=== PATIENT | female | born 1950 | race Caucasian/White ===

== ENCOUNTER 2025-02-03 10:09 | Outpatient (REF) | payer BC, SELFPAY ==
[2025-02-03 14:44] LABS: Hematocrit 43.3 % (37.0-47.0); Hemoglobin 14.4 g/dl (12.0-16.0); Mean Corpuscular HGB Conc 33.3 g/dl (31.0-35.0); Mean Corpuscular Hemoglobin 29.8 pg (27.0-33.0); Mean Corpuscular Volume 89.5 fL (80.0-98.0); NRBC Abs Auto 0.000 X10*3/uL (0.0-0.012); NRBC Pct Auto 0.0 /100WBC (0.0-0.2); Platelet Count 163 X10*3/uL (160-400); Red Blood Count 4.84 X10*6/uL (4.20-5.50); White Blood Count 4.9 X10*3/uL (4.8-10.8)
[2025-02-03 15:29] LABS: Alanine Aminotransferase 20 U/L (0-31); Albumin Level 4.9 g/dL (3.5-5.0); Alkaline Phosphatase 55 U/L (39-117); Anion Gap 12 (12-20); Aspartate Amino Transferase 31 U/L (5-31); Blood Urea Nitrogen 14 mg/dL (9-16); Calcium 9.5 mg/dL (8.4-10.2); Carbon Dioxide 28 mmol/L (22-29); Chloride 108 mmol/L (96-108); Cholesterol 171 mg/dL (<200); Estimated Glomerular Filt Rate > 60; HDL Cholesterol 63 mg/dL (>40); Potassium 3.8 mmol/L (3.3-5.1); Sodium 144 mmol/L (135-145); Total Protein 7.6 g/dL (6.5-8.0); Triglycerides 67 mg/dL (<150)
[2025-02-03 15:36] LABS: Folate 10.7 ng/mL (> or = 4.0); Vitamin B12 413 pg/mL (200-900)
[2025-02-03 19:54] LABS: Free T4 (Free Thyroxine) 0.81 ng/dL (0.71-1.85)
== END 2025-02-03 10:10 | disposition home or self-care (01) ==
LOC: HO.WFDLDS 10:09
PROVIDERS: PCP Nurse Practitioner Family; Visit Provider Nurse Practitioner Family
DX: I10 Essential (primary) hypertension (principal); M81.0 Age-related osteoporosis without current pathological fracture; E78.5 Hyperlipidemia, unspecified; E03.8 Other specified hypothyroidism; K59.09 Other constipation; K64.9 Unspecified hemorrhoids; R32 Unspecified urinary incontinence; Z23 Encounter for immunization; Z76.89 Persons encountering health services in other specified circumstances; Z92.89 Personal history of other medical treatment; Z13.1 Encounter for screening for diabetes mellitus
CPT/HCPCS: 36415; 80053; 80061; 82043; 82306; 82570; 82607; 82746; 83036; 84439; 84443; 85027; 90471; 90472; 90656; 90715; 96127

== ENCOUNTER 2025-02-03 10:09 | Outpatient (AMB) | payer BC, SELFPAY ==
--- NOTE | 2025-02-03 10:11 | MHC.PC.OV ---
Vital Signs 02/03/25 10:18 02/03/25 10:35 Height 5 ft 3 in Weight 124 lb 6 oz BMI 22.0 BP 152/82 H 124/66 Blood Pressure Location Rt brachial Rt brachial Position Sitting Sitting Respiration 14 Pulse 93 Pulse Source Pulse Oximeter Temp 97.3 F Temp Source Oral Pulse Oximetry (%) 98 Oxygen Delivery Method Room Air Intake Visit Reasons: DIRECTOR OF CONSULTING SERVICES regular appointment Intake Note: New patient to establish care Barker Operator Required: No Allergies ibuprofen (From [facility]) Adverse Reaction (Severe, Verified 02/03/25 10:27) Unknown Medication List - Last Reviewed 02/03/25 by Jose Bernardo MA alendronate mg PO amlodipine 2.5 mg PO DAILY atorvastatin 20 mg PO QPM clotrimazole-betamethasone 1-0.05 % appl topical DAILY hydrocortisone 2.5% 1 appl topical BID lisinopril 40 mg PO DAILY Tobacco use date assessed: 02/03/25 Fall risk assessment: 2 + Falls in past year (outside in winter, and slip on the bathroom) Last assessed Fall Risk: 02/03/25 Dental Screening Dental Screen Date: 02/03/25 Did you have a dental visit in the last 12 months?: Yes Did you have a dental problem in the last 6 months where you did not have access to dental care?: No Was dental information given to patient?: Patient has dentist HPI HPI Comments History of Present Illness Details 74-year-old female with osteoporosis, hyperlipidemia, hypertension, chronic constipation and hemorrhoids, subclinical hypothyroidism, incontinence SurgHx: Left knee arthroscopy FHx mother with stroke; father with a heart attack; brother with heart diseases. ; maternal grandmother stroke SocHx: Retired, , Retired from [employer] Health Maintenance: See scanned preventative medicine assessment with personalized health plan and screening schedule. Colon: 2018 Mammo 12/10/24 DEXA 04/2023 PAP Vaccines: Flu 02/03/25 Tdap 02/03/25 otherwise up-to-date AAA screen EKG: Specialists: DYE JIG OPERATOR Dr Quigley Podiatry Dr Gates History of Present Illness The patient is a 74-year-old female presenting to establish care and for medication refills. - Previous PCP [facility] records rec'd and reviewed. Establish Care and Health Maintenance: - The patient is establishing care. - She has not had blood work performed in over a year. - The patient currently sees a slasher tender helper and an CATECHIST. - Her immunization history includes two doses of the shingles vaccine. - She takes Vitamin D supplements. Hypertension: - The patient takes amlodipine 2.5 mg and lisinopril 40 mg for hypertension. - She reports that she recently changed her medication timing from the morning to the afternoon due to experiencing dizziness. - The patient reports feeling nervous upon arrival, which she believes contributed to an initially high blood pressure reading. Hyperlipidemia: - The patient takes atorvastatin 20 mg for hyperlipidemia. Osteoporosis: - The patient has a history of osteoporosis and takes Fosamax 70 mg. - This medication is prescribed by her director transition. Past Medical History - Osteoporosis, managed with Fosamax - Hypertension, managed with amlodipine and lisinopril - Hyperlipidemia, managed with atorvastatin - Chronic constipation - Hemorrhoids - Subclinical hypothyroidism - Urinary incontinence - Past shingles infection Review of Systems - Neurological: Reports a history of dizziness when taking blood pressure medication in the morning. - Musculoskeletal: Denies ankle swelling. - Psychiatric: Reports feeling nervous during check-in. Physical Exam General: Well developed, well nourished, in no acute distress. Appears stated age. Head: Normocephalic, atraumatic. Eyes: Pupils are equal, round and reactive to light and accommodation. Conjunctivae are clear. Vision grossly normal. Lungs: Clear to auscultation bilaterally. No rales, rhonchi or wheeze noted. Good air flow in all doll. Heart: Regular rate and rhythm. No murmurs, click, rubs or gallops are noted. Musculoskeletal: Joints are nontender, without swelling, redness, or effusions. Pulses: Peripheral pulses are equal and palpable bilaterally. Extremities: No clubbing, cyanosis nor edema is noted. No swelling in ankles. Psych: Mood and affect appropriate. Results Pending Medical Decision Making The patient is a 74-year-old female here to establish care. Her initial blood pressure was elevated, which she attributed to nervousness from the check-in process. A repeat blood pressure was 124/66 mmHg, which is well-controlled on her current regimen of amlodipine and lisinopril, which she takes in the afternoon to avoid dizziness. I reviewed her chronic conditions and have sent refills for her medications to her preferred pharmacies. Given that it has been over a year since her last labs, I ordered a baseline blood work panel. Her immunization status was reviewed, and she is up to date on her shingles vaccination. She has agreed to receive the seasonal influenza and Tdap vaccines today. A brief physical exam revealed clear lungs and no lower extremity edema. A follow-up appointment is scheduled in four weeks to review lab results and for her 's physical. Plan 1. Establish Care And Health Maintenance - Ordered baseline lab work, to be drawn today. - Administered seasonal influenza vaccine and Tdap vaccine in office. - Refilled prescriptions for amlodipine, lisinopril, and atorvastatin via [facility]. - Patient to follow up in approximately four weeks to review lab results. - Will contact the patient sooner if any critical lab values are identified. 2. Hypertension - Continue amlodipine 2.5 mg and lisinopril 40 mg. - The patient will continue to take her medications in the afternoon to mitigate dizziness. - Blood pressure was well-controlled at 124/66 mmHg in the office. 3. Hyperlipidemia - Continue atorvastatin 20 mg daily. 4. Osteoporosis - Continue Fosamax as prescribed by her CATECHIST. - Continue Vitamin D supplementation. Patient Instructions - You will receive a flu shot and a tetanus (Tdap) shot today before you leave. - After your shots, please go to the front office manager to schedule your next appointment for about four weeks from now. - At the front office manager, let them know you need to have your blood drawn. They will direct you to the lab. - We have sent refills for your blood pressure and cholesterol medicines to your [facility] mail-order pharmacy. - Continue taking your Fosamax for osteoporosis as directed by your director transition. - We will go over your lab results at your next visit, but I will call you right away if anything is abnormal. - RTO 4 weeks for SAWV sooner PRN Consent The patient was informed of the recommendation to receive the seasonal influenza vaccine and a Tdap vaccine. She was also advised that both vaccines can be safely administered at the same time. The patient provided verbal consent to receive both vaccinations during today's visit. The patient was also advised of the need for baseline lab work and provided verbal consent for the blood draw. Patient was informed and verbally consented to the use of an ambient scribe for clinic note documentation during this visit. Total time spent caring for the patient today was 45 minutes. This includes time spent before the visit reviewing the chart, time spent during the visit, and time spent after the visit on documentation, reviewing laboratory results, diagnostic imaging, medications, performing a medically necessary evaluation, counseling on diagnoses, care coordination, ordering appropriate tests, ordering appropriate medications, review of tests performed by other providers, reporting test results with the patient, communication with other healthcare providers. [facility] Social History (Updated 02/03/25 @ 10:12 by Jose Bernardo MA) Household Members: Spouse Both parents involved: No Caregiver staying overnight: No Housing: House Are you a primary healthcare specialist to a significant other at home: No Do you presently have visiting nurse or other home services: No 75 years or older and lives alone: No Alcohol intake: never Patient Tobacco Use Status: Never used Tobacco e-Cigarette/Vaping Use: Never Used Second Hand Smoke Exposure: No service: No Current occupational status: retired Current occupational exposures/hazards: No Cognitive needs: No Hearing needs: No Vision needs: Yes (wear glasses) Questionnaire PHQ-9 Over the last 2 weeks, how often have you been bothered by any of the following problems? 1. Little interest or pleasure in doing things: not at all 2. Feeling down, depressed, or hopeless: not at all 3. Trouble falling or staying asleep, or sleeping too much: not at all 4. Feeling tired or having little energy: several days 5. Poor appetite or overeating: not at all 6. Feeling bad about yourself - or that you are a failure or have let yourself or your family down: not at all 7. Trouble concentrating on things, such as reading the newspaper or watching television: not at all 8. Moving or speaking so slowly that other people could have noticed. Or the opposite - being so fidgety or restless that you have been moving around a lot more than usual: not at all 9. Thoughts that you would be better off or of hurting yourself in some way: not at all Total score: 1 Depression Screening Interpretation: Negative Depression Screening Done: Yes 01096 - PHQ-9 Billing: Yes Source: Developed by Drs. Krzysztof Lewis, Lilian Cash, Huang Pulido and colleagues, with an educational josh from [employer]. Thrive Questionnaire Date Thrive assessed: 02/03/25 I am a: Patient What is your living situation today?: I have a steady place to live Within the past 12 months, did the food you bought not last and you didn't have the money to get more?: Never true Within the past 12 months, did you worry whether your food would run out before you got money to buy more?: Never true Do you have trouble paying for medicines?: No Do you have trouble getting transportation to medical appointments?: No Do you have trouble paying your heating and electricity bill?: No Do you have trouble taking care of your child, family member or friend?: No Do you have trouble with day-to-day activities such as bathing, preparing meals, shopping, managing finances, etc.?: No Are you currently unemployed and looking for a job?: No Are you interested in more education?: No Please select the resources that you would like help with: None Currently or been in a relationship where the following occur: No concerns reported THRIVE Score: 0 AUDIT C Alcohol Use Questionnaire (AUDIT-C) 1. How often do you have a drink containing alcohol?: Never 3. How often do you have six or more drinks on one occasion?: Never Total Score: 0 Score Reviewed/Action Taken: Yes LISA-7 AMB Questionnaire LISA-7 Date LISA - 7 assessed: 02/03/25 Feeling nervous, anxious, or on edge: 1 = Several days Not being able to stop or control worryin = Not at all Worrying too much about different things: 0 = Not at all Trouble relaxin = Not at all Being so restless that it is hard to sit still: 0 = Not at all Becoming easily annoyed or irritable: 0 = Not at all Feeling afraid as if something awful might happen: 0 = Not at all Total LISA-7 score (0-4 normal; 5-9 mild; 10-14 moderate; 15-21 severe): 1 Source: Developed by Drs. Krzysztof Lewis, Lilian Cash, Huang Pulido and colleagues, with an educational josh from [employer] LISA-7 Assessment Billing LISA-7 Assessment Tool: LISA-7 Assessment 17783 Physical exam (Primary Care) Vital Signs: Last Vital Signs Temp 97.3 F 02/03/25 10:18 Pulse 93 02/03/25 10:18 Resp 14 02/03/25 10:18 BP 124/66 02/03/25 10:35 Pulse Ox 98 02/03/25 10:18 Oxygen Delivery Method Room Air 02/03/25 10:18 BMI result Body Mass Index 22.0 Tobacco/Smoking Status: Tobacco use Status Tobacco use date assessed 02/03/25 02/03/25 10:21 Patient Tobacco Use Status Never used Tobacco 02/03/25 10:21 e-Cigarette/Vaping Use Never Used 02/03/25 10:21 PHQ-9: PHQ-9 Score PHQ-9: Total score 1 02/03/25 10:27 Depression Screening Interpretation: Negative Thrive Assessment: Date of Thrive Assessment Date Thrive assessed 02/03/25 02/03/25 10:21 Currently or been in a relationship where the following occur: No concerns reported Office Procedures Flu Questionnaire Does the patient have a severe egg allergy?: No Does the patient have severe life threatening allergies?: No Does the patient have a fever or illness today?: No Has the patient ever had Guillain-Busby Syndrome?: No Has the patient ever had any past reaction to a flu shot?: No Immunizations Fluarix [id number] (PF) 45 mcg (15 mcg x 3)/0.5 mL IM syringe Performing Provider: SONJA Sandoval Performing Location: [facility] Administered by: Jose Bernardo MA on 02/03/25 10:48 Dose Route Admin Location Dispensed Lot Number Expiration Date [facility] Diagnostic Imaging Manager 0.5 mL IM Right Deltoid 0.5 mL [id number] 10/06/25 [id number] [facility] V[facility] Given Date VIS Provided VIS Publication Date 02/03/25 Single Vaccine 24 Eligibility Eligibility Date Funding Source Not VFC Eligible 02/03/25 Private Boostrix Tdap 2.5 Lf unit-8 mcg-5 Lf/0.5 mL intramuscular syringe Performing Provider: SONJA Sandoval Performing Location: [facility] Administered by: Jose Bernardo MA on 02/03/25 10:47 Dose Route Admin Location Dispensed Lot Number Expiration Date [facility] Diagnostic Imaging Manager 0.5 mL IM Left Deltoid 0.5 mL [id number] 03/06/27 03298-066-86 [employer] Total Dispensed Waste 0.5 mL 0 % VIS Given Date VIS Provided VIS Publication Date 02/03/25 Single Vaccine 20 Eligibility Eligibility Date Funding Source Not [facility] Eligible 02/03/25 Private Coding Level of Care Code New Pt Level 4 (40048) Complex EM visit Add On G2211 Diagnoses Encounter to establish care Z76.89 Osteoporosis M81.0 HLD (hyperlipidemia) E78.5 HTN (hypertension) I10 Chronic constipation K59.09 Subclinical hypothyroidism E03.8 Urinary incontinence R32 History of mammogram Z92.89 Influenza vaccination administered at current visit Z23 Need for Tdap vaccination Z23 Additional Codes LISA-7 Assessment Billing - LISA-7 Assessment Tool: LISA-7 Assessment 04477 ([id number]) PHQ-9 - 52627 - PHQ-9 Billing: Yes ([id number]) Assessment & Plan Assessment & Plan (1) Encounter to establish care: Code(s): Z76.89 - Persons encountering health services in other specified circumstances (2) Osteoporosis: Code(s): M81.0 - Age-related osteoporosis without current pathological fracture Category: Medical (3) HLD (hyperlipidemia): Code(s): E78.5 - Hyperlipidemia, unspecified Category: Medical (4) HTN (hypertension): Code(s): I10 - Essential (primary) hypertension Category: Medical (5) Chronic constipation: Code(s): K59.09 - Other constipation Category: Medical (6) Subclinical hypothyroidism: Code(s): E03.8 - Other specified hypothyroidism Category: Medical (7) Urinary incontinence: Code(s): R32 - Unspecified urinary incontinence Category: Medical (8) History of mammogram: Onset Date: ~12/10/24 Code(s): Z92.89 - Personal history of other medical treatment Category: Medical (9) Influenza vaccination administered at current visit: Onset Date: ~02/03/25 Code(s): Z23 - Encounter for immunization Category: Medical (10) Need for Tdap vaccination: Onset Date: ~02/03/25 Code(s): Z23 - Encounter for immunization Category: Medical Plan . Orders: Orders Complete Blood Count no Diff Today E03.8 - Other specified hypothyroidism, E78.5 - Hyperlipidemia, unspecified, I10 - Essential (primary) hypertension, M81.0 - Age-related osteoporosis without current pathological fracture Lipid Panel Today E03.8 - Other specified hypothyroidism, E78.5 - Hyperlipidemia, unspecified, I10 - Essential (primary) hypertension, M81.0 - Age-related osteoporosis without current pathological fracture Microalbumin, Random (w Creat) Today E03.8 - Other specified hypothyroidism, E78.5 - Hyperlipidemia, unspecified, I10 - Essential (primary) hypertension, M81.0 - Age-related osteoporosis without current pathological fracture Vitamin B12 and Folate Today E03.8 - Other specified hypothyroidism, E78.5 - Hyperlipidemia, unspecified, I10 - Essential (primary) hypertension, M81.0 - Age-related osteoporosis without current pathological fracture TDaP Immunization Today Z23 - Encounter for immunization Comprehensive Met. Panel Today E03.8 - Other specified hypothyroidism, E78.5 - Hyperlipidemia, unspecified, I10 - Essential (primary) hypertension, M81.0 - Age-related osteoporosis without current pathological fracture TSH reflex Free T4 Today E03.8 - Other specified hypothyroidism, E78.5 - Hyperlipidemia, unspecified, I10 - Essential (primary) hypertension, M81.0 - Age-related osteoporosis without current pathological fracture Vitamin D 25-OH Total Today E03.8 - Other specified hypothyroidism, E78.5 - Hyperlipidemia, unspecified, I10 - Essential (primary) hypertension, M81.0 - Age-related osteoporosis without current pathological fracture Hemoglobin A1c Today E03.8 - Other specified hypothyroidism, E78.5 - Hyperlipidemia, unspecified, I10 - Essential (primary) hypertension, M81.0 - Age-related osteoporosis without current pathological fracture Influenza [id number] Immunization Today Z23 - Encounter for immunization Medications: New atorvastatin 20 mg PO QPM 90 tabs 2RF alendronate 70 mg PO QWEEK 13 tabs 2RF 90 days amlodipine 2.5 mg PO DAILY 90 tabs 2RF lisinopril 40 mg PO DAILY 90 tabs 2RF Patient Instructions: Walk-In Care (Urgent Care): We Make it Easy Walk-in for urgent medical issues such as: ? Seasonal Allergies ? Insect Bites ? Cough ? Diarrhea ? Acute Asthma Attacks ? Back, Knee or Joint Pain ? Ear Infection ? Fever without a Rash ? Headaches ? Nausea ? [place], Rash or Skin Irritation ? Sore Throat ? Sports Physicals ? Vomiting Most insurances are accepted. Patients do not need to be part of the [facility] to seek care at the walk-in clinic. Locations [address], [place] Open Sunday through Sunday 8am-5pm *Hours may vary due to staffing availability. To confirm Walk-In Care hours please call. [address] [place] [address] ? [phone] [facility] Walk-In Care in [place] provides services to ages 18 and over. Open Sunday-Sunday: 7 a.m. to 5 p.m. and Sunday: 9 a.m. to 3 p.m.* *Hours may vary due to staffing availability. To confirm Walk-In Care hours in [place], please call [phone]. [address] [place] [address] ? [phone] [facility] Walk-In Care in [place] provides services to ages 12 and over. Open Sunday-Sunday: 8 a.m. to 5 p.m. Hours may vary due to staffing availability. To confirm Walk-In Care hours in [place], please call [phone]. LABORATORY SERVICES: [facility] ? Primary Location [address] [place] [address] Sunday through Sunday 6:00 AM ? 5:00 PM Sunday 7:00 AM ? 11:00 AM* [phone] The [facility] is centrally located near the front entrance of the [facility] for easy outpatient access. Convenient parking is provided for outpatients. *Hours may vary due to staffing availability. To confirm Laboratory hours for any location, please call [phone]. Offsite Location For your convenience, we offer offsite laboratory draw stations at the following locations: [address] [place] [address] ? [address], [address] Sunday through Sunday 7:30 AM ? 1:00 PM* [phone] *Hours may vary due to staffing availability. To confirm Laboratory hours for any location, please call [phone]. [place] ? [address] Sunday through Sunday 6:00 AM ? 3:30 PM* Sunday 6:30 AM ? 3 PM* [phone] *Hours may vary due to staffing availability. To confirm Laboratory hours for any location, please call [phone] [facility] Sunday through Sunday 7:30 AM ? 4:00 PM* [phone] *Hours may vary due to staffing availability. To confirm Laboratory hours for any location, please call [phone] [place] [address] Sunday through 9:00 AM ? 4:00 PM* *Hours may vary due to staffing availability. To confirm Laboratory hours for any location, please call [phone]. Appointments are not necessary. Walk-ins are welcome. Like all the departments throughout the [facility], our Lab undergoes frequent reviews to ensure the quality and accuracy of test results, and our staff takes special pride in its status as a nationally accredited facility. Patient Portal: [facility] ONE PATIENT. ONE RECORD. BETTER CARE. [facility] has a fully integrated, cutting-edge mobile electronic health information system that has revolutionized the way we care for our patients and manage our organization. This system improves communication and coordination enabling us to provide safe, higher-quality care, and an overall positive experience for staff and patients. Our first priority, as always, is to deliver the highest quality care possible. The system is running in the background supporting that priority. This portal is for all [facility] and [facility] services and practices. If you are experiencing any technical difficulties with enrolling or logging into the Patient Portal please complete the [facility] Patient Portal Technical Support Form. [facility] now offers a new secure on-line interactive tool for patients to review their health information ? ?Patient Portal. This interactive web portal will enable patients and their families to take an active role in their care by providing easy, secure access to their health information via the internet. The Patient Portal provides patients with instant access to their health information, including laboratory results, medications, allergies, demographic information, visit history, and more. In addition to managing their own care, parents and health care proxies with authorized consent will appreciate the ability to access the records of those individuals for whom they provide care. Please note: if you wish to gain access (Proxy) to another patient?s portal, you will be required to come to the Medical Records Department in person at [facility]. Both the patient giving proxy access and the proxy will need to provide photo identification and complete the appropriate authorization. The Patient Portal also allows track their appointments online. The [facility] Patient Portal also saves patients time by allowing them to submit updates to their demographic and contact information prior to their visits. Portal email notifications will also alert patients to any new activity on their portal, such as test results and new appointments. In order to initially enroll in the [facility] Patient Portal, you will need to enter some required information including the following: your [facility] Medical Record number your personal home email address name date of Please note: In order to enroll in the [facility] Patient Portal, we need to have your email address on file in your electronic medical record. ?The email address needs to be specific for one person (yourself) in order for your Portal enrollment to be successful. ?You can update your email address in person with our Registration staff when you are registering for a hospital visit. ?Otherwise, you will need to come to the Health Information Management (Medical Records) Department at [facility] [facility]. ?We are open from Sunday ? Sunday from 7:30 a.m. ? 4:30 p.m. ?You will be required to present a photo id. Once you have successfully enrolled in the Patient Portal, you will receive a one-time user id and password for the Portal, sent to your email address. ?This will allow you to log into the Patient Portal within 99 hrs and reset your own logon id and password, and define personal security questions. ?Once your permanent login and password have been set, you can log into the [facility] Patient Portal at any time via the blue button above or from the Portal Logon button on any page of the [facility] website. [facility] and [facility] encourage all of our patients to enroll in Patient Portal as it presents a valuable opportunity for patients and their families to actively participate in their care and stay healthy Welcome to [facility]. ?We look forward to working with you.
[2025-02-03 10:18] VITALS: BP 152/82; PULSE 93; RESP 14; TEMP 36.3; O2SAT 98; BMI 22.0
[2025-02-03 10:35] VITALS: BP 124/66
--- OUTSIDE RECORDS SUMMARY | 2025-02-03 12:18 | XMS_ITS | Encounter Summary ---
Author Organization [facility] Address [address] [facility] [address] [place] [id number] Phone Care Team Providers Care Double Cut Off Saw Operator Name Role Phone Darleen Garcia MD Primary Care Provider Unavailable Reason for Referral * Physical Therapy (Routine) - Closed Specialty Diagnoses / Procedures Referred By Contac t Referred To Contact Physical Therapy Diagnoses Constipation, unspecified constipation type constipation, has trouble pushing feces out, biofeedback System, Provider Not In, PhD [id number] [place] [id number] Phone: tel: Referral ID Status Reason Start Date Expiration Date Visits Re quested Visits Authorized [id number] Closed 09/25/2018 09/26/2019 1 1 Encounter Details Date Type Department Care Team (Latest Contact Info) Description 09/25/2018 Transcribe Orders [facility] [address] [place] [address] Lit Alexander MD [address] [place] [address]_[place] [address] Constipation, unspecified constipation type (Primary Dx) Social History Tobacco Use Types Packs/Day Years Used Date Smoking Tobacco: Never Assessed Comments Unknown Sex and Gender Information Value Date Recorded Sex Assigned at Not on file Legal Sex Female 3:25 PM EDT Gender Identity Not on file Sexual Orientation Not on file documented as of this encounter Plan of Treatment Scheduled Referrals Name Type Priority Associated Diagnoses Orde r Schedule Ambulatory referral to [facility] Physical Therapy Outpatient Referral Routine Constipation, unspecified constipation type Ordered: 09/25/2018 documented as of this encounter Visit Diagnoses Diagnosis Constipation, unspecified constipation type- Primary documented in this encounter Care Teams Double Cut Off Saw Operator Relationship Specialty Start Date End Date Darleen Garcia MD PCP - General 09/11/18 documented as of this encounter Additional Source Comments The information contained in this document represents components of the legal health record. It is not the complete legal health record.[facility]
--- OUTSIDE RECORDS SUMMARY | 2025-02-03 12:18 | XMS_ITS | Clinical Summary ---
Author Organization [facility] Address [address] [place] [phone] Phone Care Team Providers Care Alternative Energy Engineer Name Role Phone Darleen Garcia MD Primary Care Provider Unavailable Social History Tobacco Use Types Packs/Day Years Used Date Smoking Tobacco: Never Assessed Comments Unknown Sex and Gender Information Value Date Recorded Sex Assigned at Not on file Legal Sex Female 3:25 PM EDT Gender Identity Not on file Sexual Orientation Not on file Plan of Treatment Not on file Medical Devices Not on file Insurance [place] [place] BL[place]UE [place] [address] [address] [place] [address] MEDICARE PPO BLUE [place] [address] [place] [address] MEDICARE PPO BLUE [place] [address] [place] [address] MED[address]PO [address] [place] [place] [address] MEDICARE PPO BLUE RE[place]ACEMENT [employer] [place] [place] BLUE RE[employer]ACEMENT Care Teams Alternative Energy Engineer Relationship Specialty Start Date End Date Darleen Garcia MD PCP - General 09/11/18 Additional Source Comments The information contained in this document represents components of the legal health record. It is not the complete legal health record.[facility]
== END 2025-02-03 10:50 | disposition home or self-care (01) ==
LOC: HO.HMCFM 10:11
PROVIDERS: PCP Nurse Practitioner Family; Visit Provider Nurse Practitioner Family
DX: Z76.89 Persons encountering health services in other specified circumstances (principal); M81.0 Age-related osteoporosis without current pathological fracture; E78.5 Hyperlipidemia, unspecified; I10 Essential (primary) hypertension; K59.09 Other constipation; E03.8 Other specified hypothyroidism; R32 Unspecified urinary incontinence; Z92.89 Personal history of other medical treatment; Z23 Encounter for immunization

== ENCOUNTER 2025-03-13 10:24 | Outpatient (AMB) | payer BC, SELFPAY ==
--- NOTE | 2025-03-13 10:26 | A.OFFVIS_ITS ---
Intake Vital Signs 03/13/25 10:31 Height 5 ft 3 in Weight 125 lb 8 oz BMI 22.2 BP 128/74 Blood Pressure Location Lt brachial Position Sitting Respiration 13 Pulse 81 Pulse Source Pulse Oximeter Temp 97.7 F Temp Source Oral Pulse Oximetry (%) 98 Oxygen Delivery Method Room Air Intake Visit Reasons: 4 weeks sAWV Intake Note: AWV. Color Expert Required: No Allergies ibuprofen (From Motrin) Adverse Reaction (Severe, Verified 03/13/25 10:54) Unknown Medication List - Last Reconciled 03/13/25 by Meaghan Banks, [facility]- alendronate 70 mg PO QWEEK 90 days amlodipine 2.5 mg PO DAILY atorvastatin 20 mg PO QPM clotrimazole-betamethasone 1-0.05 % appl topical DAILY hydrocortisone 2.5% 1 appl topical BID lisinopril 40 mg PO DAILY Do you need a note to return to daycare/school/sports/work: No HPI HPI Comments History of Present Illness Details Here today for AWV. The Medicare Annual Wellness Visit (AWV) is a yearly appointment with a health professional to identify health risks and help reduce them and to create or update a personalized prevention plan. During a Medicare AWV, health professionals should also review any current opioid prescriptions, detect any cognitive impairment, and establish or update medical and family history. 74-year-old female with osteoporosis, hy perlipidemia, hypertension, chronic constipation and hemorrhoids, subclinical hypothyroidism, incontinence SurgHx: Left knee arthroscopy FHx mother with stroke; father with a heart attack; brother with heart diseases. ; maternal grandmother stroke SocHx: Retired, , Retired from [employer] Health Maintenance: See scanned preventative medicine assessment with personalized health plan and screening schedule. Colon: 2018 Mammo 12/10/24 DEXA 04/2023 PAP active w/ AGRICULTURAL RESEARCH DIRECTOR Vaccines: Flu 02/03/25 Tdap 02/03/25 otherwise up-to-date AAA screen: NA EKG: Done today and it shows borderline QTC, LVH otherwise within normal limits Labs 02/03/25 TSH 5.58, LDL 95, A1c 4.8% Specialists: AGRICULTURAL RESEARCH DIRECTOR Dr Quigley Podiat[facility] Dr Gates Optho annual exams Visual Acuity: next exam 03/27/25, annual exams, wears glasses Hearing Screening: No concerns ACP: thinks she has HCP and MOLST at home, will review. Blank forms given along w/ education. Dietary/Nutrition/Exercise Edu provided: Y During the course of the visit the patient was educated and counseled about appropriate screening and preventative services. Patient instructions were provided to the patient in written or electronic format. I have reviewed and verified the above information. History of Present Illness The patient is a 74 year old female presenting for an annual Medicare wellness visit. Chronic Condition Management: - The patient has a history of hyperlipi demia managed with atorvastatin, with a recent LDL of 95 on February 03. - She has hypertension treated with lucy nopril. - She has a history of subclinical hypot hyroidism with a TSH of 5.58. - She has osteoporosis and takes Fosamax . Arthritis: - The patient reports arthritis pain in her hands and feet, which she states wo rsens in the winter. - She has used Tylenol for Arthritis and Advil, which provided relief. 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 Gait Instability: - The patient reports feeling unsteady o n her feet at times. - She had one fall last year while shove ling and also slipped in the bathroom without injury. - She feels nervous and has difficulty g oing down stairs, particularly on a section with only one handrail, due in part to a lifelong fear of heights. - The patient declined a referral for ph ysical therapy, stating she did not think she needed it and also citing financial reasons. Constipation: - The patient reports having problems wi th bowel movements and has a history of irritable bowel syndrome. - She states that stool softeners do not work for her and only laxatives provide relief. - Prior recommendations from a specialis t felt overwhelming, and she takes one stool softener per day instead of the recommended two because she does not like taking many pills. - She has tried a fiber powder supplemen t (Benefiber), which helped a little. Past Medical History - Hyperlipidemia, treated with atorvasta tin. - Hypertension, treated with lisinopril. - Subclinical hypothyroidism. - Osteoporosis, treated with Fosamax. - Irritable bowel syndrome. - History of a fall one year ago. - Lifelong acrophobia (fear of heights). Past Surgical History - Knee surgery 20 years ago. Social History - Tobacco Use: The patient denies smokin g. - Alcohol Use: The patient reports drink ing wine seasonally at [employer] and [facility]. - Exercise: She previously had a gym mem bership but discontinued it due to financial reasons. - Functional Status: She engages in hous ework and outdoor raking for activity. - Living Situation: She lives with her h band. - Driving: She drives but not frequently or for long distances and avoids driving in snow. - Safety: She always wears a seatbelt wh en in a car. - She does not own a cell phone and reli es on a landline for calls. - Nutrition: She reports not being a big water drinker. Health Maintenance - This was an annual Medicare wellness v isit. - Eye Exam: She has an upcoming appointm ent on the of this year. - Advance Directives: The patient discus sed her healthcare proxy status, noting she previously completed one but is unsure of its location. - Screening Labs (02/03/25): LDL was 95 and A1c was 4.8. - EKG: An EKG performed during the visit - Fall Prevention: Discussed fall risk a nd the option of a lifeline device. Review of Systems - Constitutional: Denies recent falls. - Eyes: Reports wearing glasses for driv ing and reading. - Ears: Reports intermittent cerumen imp action causing muffled hearing, which her flushes out. - Gastrointestinal: Reports chronic cons tipation and abdominal cramping related to constipation. - Genitourinary: Reports mild urinary in continence, particularly with increased fluid intake. - Musculoskeletal: Reports arthritis sonia n and stiffness in her hands and feet, which worsens in the winter. - She also reports nocturnal leg cramps and chronic wintertime pain in her leg since a knee surgery 20 years ago. - Neurological: Reports occasional tingl ing in her hands and feet. - She reports gait unsteadiness, especia lly when going down stairs. - Skin: Reports having dry skin. - Psychiatric: Reports a lifelong fear o f heights. Physical Exam General: Well developed, well nourished, in no acute distress. Appears stated age. Head: Normocephalic, atraumatic. Eyes: Pupils are equal, round and reactive to light and accommodation. Conjunctivae are clear. Scleras nonicteric bilat. Vision grossly normal. Patient wears driving and reading glasses. Ears: Cerumen impaction bilat s/p lavage, TMs clear AU, EACS WNL. Nose: Patent, without discharge. Neck: No carotid bruit bilat. Supple, no adenopathy or thyromegaly. Breast: Edu on SBE Lungs: Clear to auscultation bilaterally. No rales, rhonchi or wheeze noted. Good air flow in all doll. Heart: Regular rate and rhythm. No murmurs, click, rubs or gallops are noted. Abdomen: Bowel sounds present in all quadrants. The abdomen is soft, nontender, with no masses or organomegaly noted. No hernias are noted. : Deferred. Reviewed recommendations for routine AGRICULTURAL RESEARCH DIRECTOR. Reports urinary incontinence. Pulses: Peripheral pulses are equal and palpable bilaterally. Extremities: No clubbing, cyanosis nor edema is noted. Reports tingling in feet and hands. Neurologic: Gait and station normal. Cranial Nerves 2-12 intact. Motor strength grossly symmetrical and intact. No sensory loss. Balance normal.Slow gaurded gait Skin: No rashes, ulcers, or lesions noted. Turgor is good. Skin color is good. Hair and nails are without abnormalities. Psych: Normal eye contact, affect and mood appropriate, and normal interactions. Patient is alert and appropriate to context. Results - Labs (02/03/25): LDL 95, A1c 4.8, TSH 5.58. - EKG (Today): Normal. Medical Decision Making The patient is a 74-year-old female who presented for her annual Medicare wellness visit. Her chronic conditions, including hyperlipidemia, hypertension, subclinical hypothyroidism, and osteoporosis, appear stable on her current medications, with recent labs and today's EKG being reassuring. Her primary complaints today were related to arthritis, constipation, and gait instability. For arthritis pain, Tylenol Arthritis and topical Voltaren gel are recommended to provide relief while minimizing systemic medication intake, which is a patient preference. Regarding her chronic constipation and history of IBS, she feels overwhelmed by complex regimens. Therefore, the plan was simplified to include a daily fiber supplement and a PRN laxative syrup to improve adherence and efficacy. Gait instability and fall risk were addressed. While physical therapy was declined, information on a fall alert system will be provided to enhance safety at home, given her lack of a cell phone and history of falls. On examination, bilateral cerumen impaction was an acute finding and will be managed with in- office lavage today. The patient will follow up in six months with repeat labs to monitor her chronic conditions. Plan 1. Annual Medicare Wellness Visit - Discussed advance directives and provi ded the patient with blank healthcare proxy forms for herself and her to complete. - Addressed fall risk and will arrange f or information on fall alert/lifeline systems to be mailed to the patient's home. 2. Arthritis - Recommended continued use of over-the- counter Tylenol Arthritis for pain. - Suggested trying topical Voltaren (dic lofenac) gel as an alternative to oral pills for pain management in hands, feet, and knees. 3. Constipation - Sent a prescription for a fiber supple ment tablet to be taken daily to promote bowel regularity. - Sent a prescription for a laxative syr up to be used as needed for episodes of constipation. 4. Bilateral Cerumen Impaction - Ordered bilateral ear lavage to be per formed in the office today to remove the impaction. 5. Follow-Up /Chronic Dz - Cont all meds. - The patient is to schedule a follow-up appointment in six months. - Repeat labs are to be drawn at this inic one week prior to her next appointment. Patient Instructions - For your arthritis pain, you can use T ylenol Arthritis or the Voltaren gel that you can rub on your hands, feet, and knees. - For constipation, I have sent in two n ew medications: a fiber tablet to take every day to help you stay regular, and a syrup to use only when you are constipated and need to have a bowel movement. - We are going to have someone come in a nd flush the wax out of your ears before you go home today. - Please look for your completed healthc are proxy form at home. If you cannot find it, please fill out the new blank forms I gave you for yourself and your . - We will mail you information about fal l alert systems to review with your . - Please stop at the front line supervisor to sched ule a follow-up appointment with me in six months. - You will need to get blood work done o ne week before your next appointment. Please come to this clinic's lab for that. - RTO 6 mo HTN, HLD, Arthritis, subclini sheree tsh Consent No consent was obtained as no procedures were performed. Patient was informed and verbally consented to the use of an ambient scribe for clinic note documentation during this visit. An additional 30 minutes was spent addressing the problem(s) noted at todays visit. This includes time spent before the visit reviewing the chart, time spent during the visit, and time spent after the visit on documentation reviewing laboratory results, diagnostic imaging, medications, performing a medically necessary evaluation, counseling on diagnoses, care coordination, ordering appropriate tests, ordering appropriate medications, review of tests performed by other providers, reporting test results with the patient, communication with other healthcare providers. [facility] Medical History (Updated 03/13/25 @ 11:[address] [facility]) Arthritis Eczema High cholesterol IBS (irritable bowel syndrome) No pertinent family history Shingles Surgical History (Updated 02/03/25 @ 11:18 by Jose Bernardo MA) H/O knee surgery Social History (Updated 02/03/25 @ 10:12 by Jose Bernardo MA) Household Members: Spouse Both parents involved: No Caregiver staying overnight: No Housing: House Are you a primary career development counselor to a significant other at home: No Do you presently have visiting nurse or other home services: No 75 years or older and lives alone: No Alcohol intake: never Patient Tobacco Use Status: Never used Tobacco e-Cigarette/Vaping Use: Never Used Second Hand Smoke Exposure: No service: No Current occupational status: retired Current occupational exposures/hazards: No Cognitive needs: No Hearing needs: No Vision needs: Yes (wear glasses) Questionnaire Medicare Wellness Checkup What [age] What gender do you identify with?: female During the past 4 weeks, how much have you been bothered by emotional problems such as feeling anxious, depressed, irritable, sad or downhearted, and blue?: not at all During the past 4 weeks, has your physical & emotional health limited your social activities with family, friends, neighbors, or groups?: not at all During the past 4 weeks, how much bodily pain have you generally had?: very mild pain During the past 4 weeks, was someone available to help you if you needed & wanted help?: yes, as much as I wanted During the past 4 weeks, what was the hardest physical activity you could do for at least 2 minutes?: moderate Can you get to places out of walking distance without help? (For eg., can you travel alone on buses, taxis or drive your car?): Yes Can you go shopping for groceries or clothes without someone's help?: Yes Can you prepare your own meals?: Yes Can you do your housework without help?: Yes Because of any health problems, do you need the help of another person with your personal care needs such as eating, bathing, dressing or getting around the house?: No Can you handle your own money without help?: Yes During the past 4 weeks, how would you rate your health in general?: very good During the past 4 weeks how have things been going for you?: pretty well Are you having difficulties driving your car?: no Do you always fasten your seat belt when you are in a car?: yes, usually During past 4 weeks, have you been bothered by the following: never: Falling or dizzy when standing up, Sexual problems?, Trouble eating well?, Teeth or denture problems?, Problems using the telephone? and Tiredness or fatigue? Have you fallen 2 or more times in the past year?: No Are you afraid of falling?: Yes Are you a smoker?: no During the past 4 weeks, how many drinks of wine, beer, or other alcoholic beverages did you have?: 1 drink or less per week Do you exercise for about 20 minutes 3 or more times a week?: yes, some of the time Have you been given information to help with the following?: no: Hazards in your house that might hurt you? and no: Keeping track of your medications? How often do you have trouble taking medicines the way you have been told to take them?: I always take medicine as prescribed How confident are you that you can control & manage most of your health problems?: very confident What is your race?: White Activity of Daily Living Bathing - sponge bath, tub bath or shower: receives no assistance (gets in/out by self, if usual bathing means Dressing - getting clothes from closets & drawers, including inner/outer garments & fasteners.: gets clothes & gets completely dressed without help Toileting - going to the 'toilet room' for urine/bowel elimination & cleaning self/arranging clothes: goes to toilet room, cleans self, arranges clothes without help Transfer: moves in & out of bed and chair without help (may use support object) Continence: controls urination/bowel movements completely by self Feeding: feeds self without help Total Score: 0 Information obtained from: patient Using telephone: independent Traveling: independent Shopping: independent Preparing meals: independent Housework: independent Taking medicine: independent Managing money: independent PHQ-9 Over the last 2 weeks, how often have you been bothered by any of the following problems? 1. Little interest or pleasure in doing things: not at all 2. Feeling down, depressed, or hopeless: not at all 3. Trouble falling or staying asleep, or sleeping too much: not at all 4. Feeling tired or having little energy: not at all 5. Poor appetite or overeating: not at all 6. Feeling bad about yourself - or that you are a failure or have let yourself or your family down: not at all 7. Trouble concentrating on things, such as reading the newspaper or watching television: not at all 8. Moving or speaking so slowly that other people could have noticed. Or the opposite - being so fidgety or restless that you have been moving around a lot more than usual: not at all 9. Thoughts that you would be better off or of hurting yourself in some way: not at all Total score: 0 Depression Screening Interpretation: Negative Depression Screening Done: Yes 12503 - PHQ-9 Billing: Yes Source: Developed by Drs. Krzysztof Lewis, Lilian Cash, Huang Pulido and colleagues, with an educational josh from [employer]. Physical Exam Vital Signs: Last Vital Signs Temp 97.7 F 03/13/25 10:31 Pulse 81 03/13/25 10:31 Resp 13 03/13/25 10:31 BP 128/74 03/13/25 10:31 Pulse Ox 98 03/13/25 10:31 Oxygen Delivery Method Room Air 03/13/25 10:31 BMI result Body Mass Index 22.2 Office Procedures Cerumen Removal From which ear canal was the cerumen removed: bilateral Removal: irrigation Notes: patient tolerated procedure well, no complications and ear canal clear [id number] Irrigation/Lavage EKG [id number], Complete Vision Screening Right Eye: 20/25 Left Eye: 20/25 Bilateral: 20/25 Color: Pass [id number] - Vision Screening Assessment & Plan Assessment & Plan (1) Encounter for annual wellness visit (AWV) in Medicare patient: Onset Date: ~03/13/25 Code(s): Z00.00 - Encounter for general adult medical examination without abnormal findings (2) Subclinical hypothyroidism: Code(s): E03.8 - Other specified hypothyroidism (3) Osteoarthritis: Code(s): M19.90 - Unspecified osteoarthritis, unspecified site Qualifiers: Osteoarthritis location: unspecified site (4) At risk for falls: Code(s): Z91.81 - History of falling (5) Chronic constipation: Code(s): K59.09 - Other constipation (6) Impacted cerumen, bilateral: Code(s): H61.23 - Impacted cerumen, bilateral (7) HLD (hyperlipidemia): Code(s): E78.5 - Hyperlipidemia, unspecified Qualifiers: Hyperlipidemia type: mixed hyperlipidemia Qualified Code(s): E78.2 - Mixed hyperlipidemia (8) HTN (hypertension): Code(s): I10 - Essential (primary) hypertension Qualifiers: Hypertension type: primary hypertension Qualified Code(s): I10 - Essential (primary) hypertension (9) History of colonoscopy: Onset Date: ~2017 Code(s): Z98.890 - Other specified postprocedural states (10) History of mammogram: Onset Date: ~12/10/24 Code(s): Z92.89 - Personal history of other medical treatment (11) Urinary incontinence: Code(s): R32 - Unspecified urinary incontinence Plan . Orders: Orders Lipid Panel 6 Months E03.8 - Other specified hypothyroidism, E78.5 - Hyperlipidemia, unspecified, I10 - Essential (primary) hypertension Comprehensive Met. Panel 6 Months E03.8 - Other specified hypothyroidism, E78.5 - Hyperlipidemia, unspecified, I10 - Essential (primary) hypertension TSH reflex Free T4 6 Months E03.8 - Other specified hypothyroidism, E78.5 - Hyperlipidemia, unspecified, I10 - Essential (primary) hypertension Referrals Nurse Navigator Referral Z91.81 - History of falling Medications: New lactulose 20 grams (30 mL) PO BID PRN 946 mL 2RF constipation 30 days calcium polycarbophil (Fiber-Tabs) 1,250 mg (2 x 625 mg) PO DAILY 180 tabs 2RF Patient Instructions: Patient Instructions - For your arthritis pain, you can use Tylenol Arthritis or the Voltaren gel that you can rub on your hands, feet, and knees. - For constipation, I have sent in two new medications: a fiber tablet to take every day to help you stay regular, and a syrup to use only when you are constipated and need to have a bowel movement. - We are going to have someone come in and flush the wax out of your ears before you go home today. - Please look for your completed healthcare proxy form at home. If you cannot find it, please fill out the new blank forms I gave you for yourself and your . - We will mail you information about fall alert systems to review with your . - Please stop at the front line supervisor to schedule a follow-up appointment with me in six months. - You will need to get blood work done one week before your next appointment. Please come to this clinic's lab for that. Health screenings for women You should visit your health care provider from time to time, even if you are healthy. The purpose of these visits is to: Screen for medical issues Assess your risk for future medical problems Encourage a healthy lifestyle Update vaccinations and other preventive care services Help you get to know your provider in case of an illness Information Even if you feel fine, you should still see your provider for regular checkups. These visits can help you avoid problems in the future. For example, the only way to find out if you have high blood pressure is to have it checked regularly. High blood sugar and high cholesterol levels also may not have any symptoms in the early stages. A simple blood test can check for these conditions. There are specific times when you should see your provider or receive specific health screenings. The [place] Preventive Services Task Force publishes a list of recommended screenings. Below are screening guidelines for women ages 18 to 39. BLOOD PRESSURE SCREENING Your blood pressure should be checked at least once every 3 to 5 years if: Your blood pressure is in the normal range (top number less than 120 mm Hg and bottom number less than 80 mm Hg) You don't have risk factors for high blood pressure Ask your provider if you need your blood pressure checked more often if: The top number is 120 to 129 mm Hg or the bottom number is 70 to 79 mm Hg You have diabetes, heart disease, kidney problems, are overweight, or have certain other health conditions You have a first-degree relative with high blood pressure You are Black You had high blood pressure during a If the top number is 130 mm Hg or greater or the bottom number is 80 mm Hg or greater, this is considered stage 1 hypertension. Schedule an appointment with your provider to learn how you can reduce your blood pressure. Watch for blood pressure screenings in your area. Ask your provider if you can stop in to have your blood pressure checked. BREAST CANCER SCREENING Experts do not agree about the benefits of breast self-exams in finding breast cancer or saving lives. Talk to your provider about what is best for you. A screening mammogram is not recommended for most women under age 40. Your provider may discuss and recommend mammograms, MRI scans, or ultrasounds if you have an increased risk for breast cancer, such as: A mother or sister who had breast cancer at a young age (most often starting screening earlier than the age the close relative was diagnosed) You carry a high-risk genetic marker CERVICAL CANCER SCREENING Cervical cancer screening should start at age 21 years unless your provider advises otherwise. After the first test: Women ages 21 through 29 should have a Pap test every 3 years. Exoprts do not agree on whether HPV testing is recommended for this age group. Women ages 30 through 65 should be screened with either a Pap test every 3 years or the HPV test every 5 years or both tests every 5 years (called cotesting ). Women who have been treated for precancer (cervical dysplasia) should continue to have Pap tests for 20 years after treatment or until age 65, whichever is longer. If you have had your uterus and cervix removed (total hysterectomy), and you have not been diagnosed with cervical cancer or precancer (high grade cervical neoplasia), you do not need cervical cancer screening. CHOLESTEROL SCREENING Cholesterol screening should begin at: Age 45 for women with no known risk factors for coronary heart disease Age 20 for women with known risk factors for coronary heart disease Repeat cholesterol screening should take place: Every 5 years for women with normal cholesterol levels More often if changes occur in lifestyle (including weight gain and diet) More often if you have diabetes, heart disease, kidney problems, or certain other conditions DIABETES SCREENING You should be screened for diabetes starting at age 35 and then repeated every 3 years if you have no risk factors for diabetes. Screening may need to start earlier and be repeated more often if you have other risk factors for diabetes, such as: You have a first degree relative with diabetes. You are overweight or have obesity. You have high blood pressure, prediabetes, or a history of heart disease. Screening for diabetes should be done if you are planning to become and you are overweight and have other risk factors such as high blood pressure. DENTAL EXAM Go to the dentist once or twice every year for an exam and cleaning. Your dentist will evaluate if you need more frequent visits. EYE EXAM Have an eye exam every 5 to 10 years before age 40. If you have vision problems, have an eye exam every 2 years or more often if recommended by your provider. You should have an eye exam that includes an examination of your retina (back of your eye) at least every year if you have diabetes. IMMUNIZATIONS Commonly needed vaccines include: Flu shot: get one every year. COVID-19 vaccine: ask your provider what is best for you. Tetanus-diphtheria and acellular pertussis (Tdap) vaccine: have one at or after age 19 as one of your tetanus-diphtheria vaccines if you did not receive it as an adolescent. Tetanus-diphtheria: have a booster (or Tdap) every 10 years. Varicella vaccine: receive 2 doses if you never had chickenpox or the varicella vaccine. Hepatitis B vaccine: receive 2, 3, or 4 doses, depending on your exact circumstances. Measles, mumps, and rubella (MMR) vaccine: receive 1 to 2 doses if you are not already immune to MMR. Your provider can tell you if you are immune. Ask your provider about the human papillomavirus (HPV) vaccine if: You have not received the HPV vaccine in the past You have not completed the full vaccine series (you should catch up on this shot) Ask your provider if you should receive other immunizations if you have certain health problems that increase your risk for some diseases such as pneumonia. INFECTIOUS DISEASE SCREENING Women who are sexually active should be screened for chlamydia and gonorrhea up until age 25. Women 25 years and older should be screened for chlamydia and gonorrhea if at high risk. Screening for hepatitis C: All adults ages 18 to 79 should get a one-time test for hepatitis C. people should be screened at every . Screening for human immunodeficiency virus (HIV): All people ages 15 to 65 should get a one-time test for HIV. Depending on your lifestyle and medical history, you may also need to be screened for infections such as syphilis and HIV, as well as other infections. PHYSICAL EXAM All adults should visit their provider from time to time, even if they are healthy. The purpose of these visits is to: Screen for disease Assess your risk of future medical problems Encourage a healthy lifestyle Update your vaccinations and other preventive care services Maintain a relationship with a provider in case of an illness Your height, weight, and BMI should be checked at every exam. During your exam, your provider may ask you about: Depression and anxiety Diet and exercise Alcohol and tobacco use Safety issues, such as using seat belts, smoke detectors, and intimate partner violence Your medicines and risk for interactions SKIN SELF-EXAM Your provider may check your skin for signs of skin cancer, especially if you're at high risk, such as if you: Have had skin cancer before Have close relatives with skin cancer Have a weakened immune system OTHER SCREENING Talk with your provider about colon cancer screening if you have a strong family history of colon cancer or polyps, or if you have had inflammatory bowel disease or polyps yourself. Routine bone density screening of women under 40 is not recommended. Quality Reporting (2020) Adult ([facility] 138//) Smoking risk assessment performed?: Yes Patient Tobacco Use Status: Never used Tobacco Depression screening performed: Yes Screen Results: Yes Negative screen Systolic BP not done?: No Diastolic BP not done?: No BMI screening not done: No Sexual Activity Screening ([facility] 153) Sexually active?: Yes Immunizations ([facility] 147, 117) Annual Influenza Vaccine: Yes Measles Antibody Test: No Mumps Antibody Test: No Rubella Antibody Test: No Varicella Antibody Test: No Anti Hepatitis A IgG Antigen test: No Anti Hepatitis B Virus Surface Ab test: No Fall Risk Screening ([facility] 139) Last assessed Fall Risk: 03/13/25 Fall risk assessment: No Falls in past year Dementia Assessment ([facility] 149) Cognitive assessment recorded: Yes Assessment of cognition with standardized tool: Yes Depression/Bipolar (159/160/161/177) PHQ-9: Total score: 0 Ophthalmol:Cataracts Visual Acuity (133) Visual acuity exam performed: Yes Coding Level of Care Code Medicare Subsequent (G0439) Est Pt Level 4 (34994) Diagnoses Encounter for annual wellness visit (AWV) in Medicare patient Z00.00 Subclinical hypothyroidism E03.8 Osteoarthritis M19.90 Osteoarthritis location: unspecified site At risk for falls Z91.81 Chronic constipation K59.09 Impacted cerumen, bilateral H61.23 Mixed hyperlipidemia E78.2 Hyperlipidemia type: mixed hyperlipidemia Primary hypertension I10 Hypertension type: primary hypertension History of colonoscopy Z98.890 History of mammogram Z92.89 Urinary incontinence R32 CPT Codes Advance Care Planning - Time spent: 16-45 minutes ([id number]) Office Procedure - CPT: 62144-Dyc Irrigation/Lavage ([id number]) EKG - CPT: 66523-Nsrrwycbqfslemsyh, Complete ([id number]) Vision Screening - Vision Screenin - Vision Screening ([id number]) Additional Codes PHQ-9 - 43574 - PHQ-9 Billing: Yes ([id number]) Advance Care Planning Advance Care Planning discussion: Exists, not on file Date of discussion: 03/13/25 Who was present: self Forms completed: Health Care Proxy, MOLST and Living will Time spent: 16-45 minutes Actual minutes spent: 16
[2025-03-13 10:31] VITALS: BP 128/74; PULSE 81; RESP 13; TEMP 36.5; O2SAT 98; BMI 22.2
--- OUTSIDE RECORDS SUMMARY | 2025-03-13 12:03 | XMS_ITS | Clinical Summary ---
Author Organization [facility] Address [address] [place] [phone] Phone Care Team Providers Care Head Start Teacher Name Role Phone Darleen Garcia MD Primary [...] [place] MEDICARE PPO BLUE [place]AC[place] [address] [place] [address] MEDICARE PPO [place] [address] [place] [address] MEDICARE PPO [place] [place] [address] MEDICARE PPO [place]UE [place] [address] [place] [address] MEDICARE PPO BLUE REPLACEMENT [place] MED[place] P[place] BLUE REPLACEMENT Care Teams Head Start Teacher Relationship Specialty Start Date End Date Darleen Garcia MD PCP - General 09/11/18 Additional Source Comments The information contained in this document represents components of the legal health record. It is not the complete legal health record.[facility]
--- OUTSIDE RECORDS SUMMARY | 2025-03-13 12:03 | XMS_ITS | Encounter Summary ---
Author Organization [facility] Address [address] [place] [phone] Phone Care Team Providers Care Jail Manager Name Role Phone Darleen Garcia MD Primary Care Provider Unavailable Reason for Referral * Physical Therapy (Routine) - Closed Specialty Diagnoses / Procedures Referred By Contac t Referred To Contact Physical Therapy Diagnoses Constipation, unspecified constipation type constipation, has trouble pushing feces out, biofeedback System, Provider Not In, PhD [id number] [place] [id number] Phone: tel: Referral ID Status Reason Start Date Expiration Date Visits Re quested Visits Authorized [id number] Closed 09/25/2018 09/26/2019 1 1 Encounter Details Date Type Department Care Team (Latest Contact Info) Description 09/25/2018 Transcribe Orders [facility] [address] [place] [address] Lit Alexander MD [address] [place] [address]_[place] [address] Constipation, unspecified constipation type (Primary Dx) Social [...] Diagnoses Orde r Schedule Ambulatory referral to [facility] Physical Therapy Outpatient Referral Routine Constipation, unspecified constipation type Ordered: 09/25/2018 documented as of this encounter Visit Diagnoses Diagnosis Constipation, unspecified constipation type- Primary documented in this encounter Care Teams Jail Manager Relationship Specialty Start Date End Date Darleen Garcia MD PCP - General 09/11/18 documented as of this encounter Additional Source Comments The information contained in this document represents components of the legal health record. It is not the complete legal health record.[facility]
== END 2025-03-13 11:45 | disposition home or self-care (01) ==
LOC: HO.HMCFM 10:25
PROVIDERS: PCP Nurse Practitioner Family; Visit Provider Nurse Practitioner Family
DX: Z00.00 Encounter for general adult medical examination without abnormal findings (principal); E03.8 Other specified hypothyroidism; M19.90 Unspecified osteoarthritis, unspecified site; H61.23 Impacted cerumen, bilateral; I10 Essential (primary) hypertension; E78.2 Mixed hyperlipidemia; K59.09 Other constipation; R32 Unspecified urinary incontinence; Z91.81 History of falling

== ENCOUNTER → 2025-03-13 10:24 | Outpatient (BNVA) | payer BC, SELFPAY | PROVIDERS: PCP Nurse Practitioner Family; Visit Provider Nurse Practitioner Family | DX: Z00.00 Encounter for general adult medical examination without abnormal findings (principal); H61.23 Impacted cerumen, bilateral; E03.8 Other specified hypothyroidism; M19.90 Unspecified osteoarthritis, unspecified site; Z91.81 History of falling; K59.09 Other constipation; E78.2 Mixed hyperlipidemia; I10 Essential (primary) hypertension; R32 Unspecified urinary incontinence; Z92.89 Personal history of other medical treatment; Z98.890 Other specified postprocedural states | CPT/HCPCS: 69209; 96127 ==